=== PATIENT | female | born 1990 | race Caucasian/White ===

== ENCOUNTER → 2018-10-19 11:18 | Outpatient (CLI) | payer OTHER, MEDICAID ==
[~2018-10-19 11:18] MED LIST: METFORMIN HCL500 M1 PO; NORMODYNE / TR100 MG PO; PROVERA10 MG PO
[2018-10-19 12:22] LABS: HCG URINE NEGATIVE (NEGATIVE)
[2018-10-19 12:51] LABS: HEMATOCRIT 29.7 % (36.0-48.0); HEMOGLOBIN 10.2 g/dL (12-16); LYMPHOCYTES 32.7 % (15-50); MCH 29.1 pg (26.0-34.0); MCHC 34.3 g/dL (31.0-37.0); MCV 84.9 fL (80.0-100.0); MEAN PLATELET VOLUME 9.4 fL (7.4-10.4); NEUTROPHILS 59.7 % (40-80); PLATELET COUNT 408 10x3/uL (130-400); RDW 12.1 % (11.5-14.5); WBC 9.9 10x3/uL (4.8-10.8)
[2018-10-21 07:06] VITALS: BMI 38.9
== END | disposition home or self-care (01) ==
LOC: D.LAB 11:18
PROVIDERS: ATTEND Obstetrics & Gynecology
DX: N93.8 Other specified abnormal uterine and vaginal bleeding (principal)

== ENCOUNTER 2018-10-21 06:30 | Day surgery (SDC) | payer OTHER, MEDICAID ==
[~2018-10-21] VITALS: Ht 162.6 cm; Wt 102.5 kg
[2018-10-21 07:06] VITALS: BP 133/79; Ht 162.6 cm; Wt 102.5 kg
[2018-10-21 07:32] LABS: HCG URINE NEGATIVE (NEGATIVE)
--- NOTE | 2018-10-21 10:24 | NUR ---
1020 RECIEVED BREAKFAST TRAY
--- NOTE | 2018-10-21 11:10 | NUR ---
IV REMOVED AND PRESSURE HELD. DRESSING APPLIED
--- NOTE | 2018-10-22 08:05 | OP ---
PATIENT NAME: WILFRID POWER MEDICAL RECORD: [id number] :86 LOCATION:[facility] ADMISSION DATE: SURGEON: IVAN GAUTAM MD DATE OF OPERATION: 10/21/2018 PREOPERATIVE DIAGNOSIS: Dysfunctional uterine bleeding. POSTOPERATIVE DIAGNOSIS: Dysfunctional uterine bleeding. PROCEDURE: Dilation and curettage. SURGEON: Ivan Gautam MD FLOOR TECHNICIAN: Charlie Hare. ANESTHETIC: General. FINDINGS: Uterus sounds to approximately 8 cm. At the time of curettage, a moderate amount of tissue returned. Good cry throughout. SPECIMEN REMOVED: Endometrial curettings. SPECIMEN DISPOSITION: Pathology. ESTIMATED BLOOD LOSS: Less than or equal to 50 cc. FLUIDS: 900 cc of lactated Ringer's. URINE OUTPUT: Quantity sufficient void prior to this procedure. COMPLICATIONS: None. DRAINS: None. INDICATIONS: The patient is a 27-year-old female with dysfunctional uterine bleeding. The patient also has a history of polycystic ovarian syndrome. The patient has tried withdrawal bleed with Provera, but has not cycled through and continues to have irregular bleeding that is an impact on quality of life. DESCRIPTION OF PROCEDURE: After informed consent was assured, the patient was taken to the operating room where anesthetic was obtained. The patient was now placed in Adonis stirrups and prepped and draped. Operative speculum was introduced in the vagina. The single tooth tenaculum was used to grab the cervix anteriorly and the cervix was easily dilated to accommodate a #2 sharp curette. This curette was passed gently to the fundus and with traction against the uterus drawn out. A moderate amount of tissue was returned. The uterine sound at the close of this procedure shows a uterine depth of approximately 8 cm. The single tooth tenaculum was removed from the cervix and some bleeding was noted. A ring forceps placed over this puncture site to be taken off as the patient was removed from the operative bed onto the [facility]. Sponge, lap, needle counts were correct times 2. The patient was awakened and went to recovery area in stable condition. TRANSINT:[id number] Voice Confirmation ID: [id number] DOCUMENT ID: [id number] OPERATIVE REPORT [id number] WILFRID POWER IVAN GAUTAM MD at 0805 CC: [id number] DICTATION DATE: 10/21/18924 SOLAR DESIGNER/INSTALLER: 10/21/18 1223 [facility] 10/21/18 [facility] [address] [id number]
== END 2018-10-21 11:21 | disposition home or self-care (01) ==
LOC: D.OPS → D.PAN 06:30 → D.LAB 07:30 → D.PAN 07:30 → D.OPS 07:30 → D.PAN 08:30 → D.OPS 11:21
PROVIDERS: ATTEND Obstetrics & Gynecology
DX: N93.8 Other specified abnormal uterine and vaginal bleeding (principal); E28.2 Polycystic ovarian syndrome; Z01.812 Encounter for preprocedural laboratory examination